=== PATIENT | female | born 1975 | race Caucasian/White ===

== ENCOUNTER → 2018-05-30 14:01 | Outpatient (CLI) | payer OTHER, SELFPAY ==
--- NOTE | 2018-05-30 14:05 | RAD_ITS ---
STUDY: X-RAY - RIGHT TIBIA AND FIBULA REASON FOR EXAM: Female, 42 years old. Bone pain for 2 weeks no injury. Triple-negative breast cancer TECHNIQUE: Terumo view(s) of the tibia and fibula were obtained. COMPARISON: None. FINDINGS: Normal visualized tibia. Normal visualized fibula. The soft tissue structures are unremarkable. RAD/Tibia & Fibula 2 Views IMPRESSION: Normal x-ray examination of the tibia and fibula. Electronically Signed: Neha Valentine MD at 7:22 EST , Service support ,
--- NOTE | 2018-05-30 14:07 | RAD_ITS ---
STUDY: X-RAY - RIGHT KNEE REASON FOR EXAM: Female, 42 years old. Bone pain for 2 weeks no injury. Triple-negative breast cancer TECHNIQUE: 3 view(s) of the knee. COMPARISON: None. FINDINGS: Normal visualized distal femur. Normal visualized proximal tibia and fibula. Normal proximal tibiofibular articulation. Normal medial femorotibial compartment. Normal lateral femorotibial compartment. Normal patellofemoral articulation. The soft tissue structures are unremarkable. RAD/Knee 3 Views IMPRESSION: Normal x-ray examination of the knee. Electronically Signed: Neha Valentine MD at 7:23 EST , Service support ,
== END ==
LOC: RAD 14:05
PROVIDERS: Family Provider Internal Medicine; PCP Internal Medicine; Referring Provider Internal Medicine Medical Oncology; Visit Provider Internal Medicine Medical Oncology
DX: M79.604 Pain in right leg (principal); Z85.3 Personal history of malignant neoplasm of breast
CPT/HCPCS: 73562; 73590

== ENCOUNTER → 2018-07-08 12:28 | Outpatient (CLI) | payer OTHER, SELFPAY ==
[2018-06-03 15:11] VITALS: BMI 27.4
--- NOTE | 2018-07-08 12:30 | BI_ITS ---
MAMMOGRAPHY - BILATERAL SCREENING 3-D MORIS SYNTHESIS REASON FOR EXAM: Female, 42 years old. Screening 3-D tomosynthesis PERTINENT HISTORY: No significant family history. TECHNIQUE: 2-D mammograms and 3-D Moris synthesis of the breast (s) were performed. CAD was performed. COMPARISON was made to the study of Dec 13 2016. FINDINGS: The breast composition is of heterogeneous fibroglandular tissue There is a scar in the inferior outer quadrant of the right breast due to previous lumpectomy this is surrounded by multiple metallic clips with benign calcification noted. There is tiny metallic clip is seen in the right axilla. Otherwise no dense spiculated masses or suspicious microcalcifications are identified. No architectural distortion is identified. There is no skin thickening or nipple retraction. There has been no significant change since the prior study of December 13, 2016. BI/SCREENING MAMM (CAD), BILAT IMPRESSION: No mammographic signs of malignancy. Scar following lumpectomy in the lower quadrant of the right unchanged since the last study. Routine yearly mammograms recommended. BIRADS-ll. FOLLOW UP RECOMMENDATION: Yearly follow up mammogram recommended. (A) Approximately 10% of breast cancers are not detected by mammography. A normal mammogram should not delay biopsy of a clinically suspicious abnormality. Electronically Signed: Wilmer Orantes, at 11:16 EST Tel , Service support ,
== END ==
PROVIDERS: Family Provider Internal Medicine; PCP Internal Medicine; Visit Provider Internal Medicine
DX: Z12.31 Encounter for screening mammogram for malignant neoplasm of breast (principal)
CPT/HCPCS: 77063; 77067

== ENCOUNTER → 2019-02-19 17:06 | Outpatient (CLI) | payer OTHER, SELFPAY ==
[2019-02-19 15:57] VITALS: BMI 28.3
[2019-02-19 20:54] LABS: Chlamydia Trachomatis by PCR Negative (Negative); Neisserai gonorrhoeae by PCR Negative (Negative); Probe Check PASS; Sample Adequacy Control PASS; Specimen Processing Control PASS
[2019-02-25 14:08] LABS: HPV Genotype 16, Aptima Negative (Negative)
[2019-02-25 15:45] LABS: HPV APTIMA, High Risk Positive (Negative); HPV Genotype 18,45 Aptima Negative (Negative)
== END ==
PROVIDERS: Nurse Practitioner Women's Health; Family Provider Internal Medicine; PCP Internal Medicine; Visit Provider Obstetrics & Gynecology
DX: Z11.3 Encounter for screening for infections with a predominantly sexual mode of transmission (principal); Z12.4 Encounter for screening for malignant neoplasm of cervix
CPT/HCPCS: 87491; 87591; 87624; 88175; G0145

== ENCOUNTER → 2019-06-23 09:28 | Outpatient (CLI) | payer OTHER, SELFPAY ==
[2019-06-05 08:17] VITALS: BMI 28.8
--- NOTE | 2019-06-23 09:31 | BI_ITS ---
MAMMOGRAPHY - BILATERAL DIAGNOSTIC REASON FOR EXAM: Female, 43 years old. One-week history of left breast lump. PERTINENT HISTORY: Personal history of breast cancer. Prior right lumpectomy with radiation and chemotherapy. TECHNIQUE: Digital bilateral breast lily (3D mammographic acquisition) in the CC and MLO projections. 2-D mediolateral oblique (MLO) and craniocaudad (CC) views of both breasts were obtained. CAD: Full Field Digital Mammography with Computer Added Detection was performed. COMPARISON: Comparison is made with prior study dated July 08, 2018 and December 13, 2016. FINDINGS: Breast Composition: The breasts are heterogeneously dense, which may obscure small masses. There are no dominant masses or suspicious calcifications. Stable architectural distortion in the central portion of the right breast in keeping with prior lumpectomy and post surgical scarring. No other significant abnormalities are identified. There has been no significant change since the prior study. BI/DIAG MAMM W/CAD, BILAT IMPRESSION: Stable bilateral diagnostic mammogram. With the patient''s history of a palpable lump in the left breast, correlation with ultrasound is recommended. ASSESSMENT CATEGORY: BIRADS Category 0: Incomplete. Need additional imaging evaluation. A letter regarding these results will be sent to the patient by the facility within 30 days. Approximately 10% of breast cancers are not detected by mammography. A normal mammogram should not delay biopsy of a clinically suspicious abnormality. Electronically Signed: Max Vallejo, at 11:29 EST , Service support ,
--- NOTE | 2019-06-23 09:31 | US_ITS ---
STUDY: ULTRASOUND BREAST - LEFT REASON FOR EXAM: Female, 43 years old. Palpable lump left breast. TECHNIQUE: Axial and longitudinal images of the LEFT breast were performed with a high resolution ultrasound transducer. # OF IMAGES: [id number] COMPARISON: Comparison is made with prior mammogram dated June 23, 2019. FINDINGS: LEFT Breast: The upper outer quadrant of the left breast was examined by ultrasound. Multiple cysts are seen in the upper outer quadrant. The palpable abnormality is at the 2:00 position of the breast. At that site, there is a 1.7 cm x 1.4 cm x 0.9 cm slightly irregular hypoechoic solid nodule. Correlation with a biopsy is recommended. US/Breast Limited Unilateral IMPRESSION: 1.7 cm x 1.4 cm x 0.9 cm hypoechoic solid nodule at the 2:00 position of the breast at 8 cm from nipple. This corresponds to the palpable abnormality. A biopsy is recommended. Multiple small cysts are seen in the upper outer quadrant of the left breast. ASSESSMENT CATEGORY: BIRADS Category 4: Suspicious - Biopsy Should Be Considered. A letter regarding these results will be sent to the patient by the facility within 30 days. Electronically Signed: Max Vallejo, at 11:14 EST , Service support ,
== END ==
LOC: OPBI 09:29
PROVIDERS: Family Provider Internal Medicine; PCP Internal Medicine; Referring Provider Internal Medicine Medical Oncology; Visit Provider Internal Medicine Medical Oncology
DX: N63.20 Unspecified lump in the left breast, unspecified quadrant (principal); Z85.3 Personal history of malignant neoplasm of breast
CPT/HCPCS: 76642; 77062; 77066; G0279

== ENCOUNTER → 2019-07-02 15:22 | Outpatient (CLI) | payer OTHER, SELFPAY ==
--- NOTE | 2019-07-02 14:00 | BRBX_PTH ---
PATIENT: ALBA RUSSELL LOC: [facility] U#:[id number] AGE/SX: 49/F ROOM: RE07/02/[address]: Dr. Andres Allred MD : 1975 BED: DIS: SPEC #: [id number] RECD: 07/02/19 15:23 STATUS: YOAN BERNARD #: [id number] SAMUEL: 07/02/19 14:[address]: Andres Allred DEPT: SURGICAL PATHOLOGY RECD BY: Jerry Ely ENTERED: 07/03/19 09:10 SP TYPE: BREAST BX OTHR DR: Dr. Ricardo Fraire MD Tissues: Left breast, NOS Procedures: Surgery Specimen Level IV HEADER OPERATION: Left breast biopsy PRE-OP DIAGNOSIS: Left breast abnormal ultrasound TISSUE SUBMITTED: Left breast tissue MICROSCOPIC DIAGNOSIS Left breast, core biopsy: Fibrocystic changes and mild intraductal hyperplasia without atypia. Negative for malignancy. See comment. SJ:jaclyn 07/04/19 COMMENT Focal chronic inflammation and histiocytic reaction is also noted consistent with ruptured cyst. Correlation with clinical, radiologic findings and appropriate follow up are necessary. MICROSCOPIC DESCRIPTION Slides are reviewed. GROSS DESCRIPTION Received in fixative is one container labeled with the patient's name and designated left breast. The specimen consists of multiple irregular fragments of riggs soft tissue that in aggregate measure 1 x 0.5 x 0.1 cm. The specimen is totally submitted in one cassette. / SILVIA:jaclyn 07/03/19 TC:5 CPT: 01262
[2019-07-02 14:03] VITALS: BMI 29.6
== END ==
LOC: LABSPEC 15:23
PROVIDERS: Family Provider Internal Medicine; PCP Internal Medicine; Referring Provider Surgery; Visit Provider Surgery
DX: R92.8 Other abnormal and inconclusive findings on diagnostic imaging of breast (principal)
CPT/HCPCS: 88305

== ENCOUNTER → 2019-07-03 16:52 | Outpatient (CLI) | payer OTHER, SELFPAY ==
[2019-06-05 08:17] VITALS: BMI 28.8
[2019-07-02 15:49] VITALS: BMI 28.8
--- NOTE | 2019-07-03 16:52 | CT_ITS ---
STUDY: CT CHEST WITH CONTRAST REASON FOR EXAM: Female, 43 years old. Palpable right breast mass, history of breast cancer RADIATION DOSAGE (If Supplied By Facility): CTDIvol = ( 16.19 ) mGy, DLP = ( 1381.55 ) mGycm TECHNIQUE: Transaxial imaging was performed following intravenous administration of 100CC [id number]. Individualized dose optimization techniques were used for this CT. COMPARISON: None. FINDINGS: The lungs are normal. There is no demonstrated pleural abnormality. Normal heart and pericardium. Normal mediastinum. Normal hilar regions. Normal enhanced pulmonary arteries. Normal aorta arch and descending thoracic aorta. There is endplate spondylosis of the lower thoracic spine. There is no evidence of osseous metastatic disease. Surgical clips are seen in the right breast and axilla. No right breast mass is identified. No axillary adenopathy is evident. Abdominal findings are reported separately. CT/Chest WITH Contrast IMPRESSION: Surgical clips seen in the right breast and axilla. No right breast mass is identified. The lungs are clear. There is no pleural effusion. There is no evidence of osseous metastatic disease. Electronically Signed: Clyde Hutchins MD at 21:12 EST , Service support ,
--- NOTE | 2019-07-03 16:52 | CT_ITS ---
STUDY: CT ABDOMEN AND PELVIS WITH CONTRAST REASON FOR EXAM: Female, 43 years old. History of right breast cancer RADIATION DOSAGE (If Supplied By Facility): CTDIvol = ( 16.19 ) mGy, DLP = ( 1381.55 ) mGycm TECHNIQUE: Transaxial images were obtained from the dome of the diaphragm to the symphysis pubis without oral contrast. 100CC ISOVUE 370 was administered. Sagittal and coronal images were reconstructed. Individualized dose optimization techniques were used for this CT. COMPARISON: None. FINDINGS: The visualized lung bases are unremarkable. The visualized portions of the heart are within normal limits. Normal liver. There is non-visualization of the gallbladder, which may be secondary to either contraction or a prior cholecystectomy. Normal spleen. Normal pancreas. Normal bilateral adrenal glands. Normal right kidney. Normal left kidney. Normal visualized stomach. Several cystic structures are seen in the posterior pelvis appearing to represent fluid-filled small bowel or ovarian cyst. Normal colon. The appendix is visualized and appears normal. There are calcified plaques of the abdominal aorta. Normal inferior vena cava. Normal retroperitoneum. Normal urinary bladder. An IUD is noted in the uterus. There is a small umbilical hernia containing fat. There is bilateral L5 spondylolysis with no associated spondylolisthesis. There is no evidence of osseous metastatic disease. CT/Abdomen/Pelvis W IV Cont ONLY IMPRESSION: 1. Nonvisualization of the gallbladder. 2. There are several cystic structures of the posterior pelvis appear to represent fluid-filled small bowel or ovarian cysts. If clinically indicated ultrasonographic correlation may be helpful. 3. IUD noted. This appears in adequate position. 4. Small fat-containing umbilical hernia. 5. Bilateral L5 spondylolysis with no associated spondylolisthesis. 6. There is no evidence of free intra-abdominal or intrapelvic air, fluid, or inflammatory process. No intra-abdominal or intrapelvic mass or adenopathy is evident. Electronically Signed: Clyde Hutchins MD at 21:24 EST , Service support ,
== END ==
LOC: CT 16:52
PROVIDERS: Family Provider Internal Medicine; PCP Internal Medicine; Referring Provider Internal Medicine Medical Oncology; Visit Provider Internal Medicine Medical Oncology
DX: N63.10 Unspecified lump in the right breast, unspecified quadrant (principal); Z85.3 Personal history of malignant neoplasm of breast
CPT/HCPCS: 71260; 74177; Q9967